=== PATIENT | male | born 1990 | race Caucasian/White ===

== ENCOUNTER 2021-06-01 16:10 | Emergency (ER) | payer OTHER, SELFPAY ==
--- NOTE | ~2021-06-01 | XR_ITS ---
. EXAMINATION: XR ankle RT min 3V, XR foot RT min 3V DATE: 06/01/2021 17:37 INDICATION: Medial and posterior right foot and ankle pain TECHNIQUE: 1. Anteroposterior, mortise, additional oblique and lateral view of the right ankle were obtained. 2. Dorsoplantar, two oblique and lateral views of the right foot were obtained. COMPARISON: None. FINDINGS: Alignment of the right foot and ankle is normal. No fracture or osteochondral lesion. Joint spaces ar e well maintained. Tiny Achilles calcaneal spur. No ankle joint effusion. The soft tissues are unrema rkable. IMPRESSION: 1. Tiny Achilles calcaneal spur. Otherwise normal right foot and ankle radiographs. Reviewed, dictated and finalized at location A. IMPRESSION: 1. Tiny Achilles calcaneal spur. Otherwise normal right foot and ankle radiogra phs.
[2021-06-01 16:50] VITALS: BP 144/90; PULSE 91; RESP 18; TEMP 36.3; O2SAT 96
--- NOTE | 2021-06-01 18:10 | ED.LOWEXIN ---
HPI - Extremity Injury (Lower) General Chief Complaint: Extremity Injury, Lower Stated Complaint: right ankle pain Time Seen by Provider: 06/01/21 16:12 Source: patient and RN notes reviewed Mode of arrival: ambulatory Limitations: no limitations History of Present Illness complaint: ankle injury Injury: Right: ankle Type of Injury: hyperextension Place: work Severity: mild Severity scale (1-10): 4 Relieving factors: nothing Exacerbating factors: weight bearing Other symptoms: none Related Data Allergies Allergy/AdvReac Type Severity Reaction Status Date / Time No Known Allergies Allergy Verified 06/01/21 16:58 Review of Systems Review of Systems: All systems reviewed & are unremarkable except as noted in HPI and below Musculoskeletal: Musculoskeletal: Reports arthralgias PMFSH Past Medical History Medical History Ankle sprain and strain Exam Const: General: no acute distress and alert Nutritional Appearance: well nourished Orientation/consciousness: patient oriented x3 Limitations: no limitations HENMT: Head: normal to inspection Ears: external ears normal, TM's normal bilaterally and EAC's normal General nose exam: Normal external nose present and Normal nares present Face and sinus: normal facial exam and sinuses nontender Mouth: Yes lip normal and Yes moist mucous membranes Teeth and gingiva: dentition normal Eyes: General: appearance normal, both eyes and all related structures Visual Jeronimo: normal visual jeronimo by confrontation Conjunctivae: conjunctivae normal Pupils: Equal, round and reactive pupils present EOM: EOMs intact bilaterally Neck: Neck: normal visual inspection and no lymphadenopathy Chest: Chest palpation & inspection: normal inspection of the chest Resp: Effort & Inspection: normal respiratory effort Auscultation: clear to auscultation bilaterally Cardio: Rate: regular rate Rhythm: regular rhythm GI: GI Palp: Yes Soft to palpation and No Tenderness to palpation present (GI) : General: Yes bladder normal to palpation and Yes no CVA tenderness Male General Exam: Yes normal external exam Testes: Testes normal Back/Spine/Pelvis: Back: no CVA tenderness Skin: General skin exam: normal color Rashes: no rashes Neuro: General: patient oriented x3, moves all extremities, no meningeal signs, no focal motor deficits and CN's II-XI intact bilaterally Extrem: General: normal to inspection and no pedal edema Psych: Appearance: grossly normal and well kempt Mental Status: mental status grossly normal Affect: normal affect Attitude: cooperative Thought content: Yes Normal thought content present Course Course Emergency Course: Pt was stable and less pain-ful in the ED. Reevaluation(s) Reevaluation #1: VSS Date: 06/01/21 Time: 17:06 Vital Signs Vital signs: Vital Signs Temperature 36.3 C L 06/01/21 16:50 Pulse Rate 91 06/01/21 16:50 Respiratory Rate 18 06/01/21 16:50 Blood Pressure 144/90 H 06/01/21 16:50 Pulse Oximetry 96 06/01/21 16:50 Temperature 36.8 C 06/01/21 18:28 Pulse Rate 65 06/01/21 18:28 Respiratory Rate 16 06/01/21 18:28 Blood Pressure 132/74 06/01/21 18:28 Pulse Oximetry 98 06/01/21 18:28 MDM - Extremity Injury (Lower) Differential Diagnosis Differential diagnosis: Likely ankle sprain and strain and ankle fracture Medical Records Attestation: I reviewed the patient's medical records. Imaging Data Radiologist's impression: Please see report. Critical Care Time Critical Care Time Critical Care Time: No Total Critical Care Time: 0 Discharge Plan Discharge Clinical Impression: Ankle sprain and strain Patient Disposition: Home, Self-Care Condition: Stable Instructions: Antibiotic Form, Ankle Sprain (ED) Additional Instructions: Home. May RTC prn. PMD in 1-2 days. NWB on crutches. Rx below. RICE. Off work x 2 days. Prescriptions:
[2021-06-01] MEDS: IBUPROFEN 400 MG TABLET 800 MG PO (18:24)
[2021-06-01 18:28] VITALS: BP 132/74; PULSE 65; RESP 16; TEMP 36.8; O2SAT 98
== END 2021-06-01 18:45 | disposition home or self-care (01) ==
PROVIDERS: Emergency Provider Emergency Medicine
DX: S93.401A Sprain of unspecified ligament of right ankle, initial encounter (principal)
CPT/HCPCS: 73610; 73630; 99283; A9270

== ENCOUNTER 2024-03-07 11:00 | Outpatient (CLI) | payer BC, SELFPAY ==
--- NOTE | ~2024-03-07 | XR_ITS ---
Right foot Technique: AP, oblique, and lateral views were obtained. Clinical History: Pain Findings: No acute fracture or dislocation is seen. Osseous alignment is anatomic. Joint spaces are p reserved without erosive or degenerative change. Soft tissues are unremarkable. Impression: Unremarkable right foot radiographs. Reviewed, dictated and finalized at location . 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
--- NOTE | ~2024-03-07 | XR_ITS ---
Right ankle Technique: AP, oblique, and lateral views were obtained. Clinical History: Pain Findings: No acute fracture or dislocation is seen. Osseous alignment is anatomic. Ankle mortise and other visualized joint spaces are preserved. Soft tissues are otherwise unremarkable. Impression: Unremarkable right ankle. Reviewed, dictated and finalized at location . 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
[2024-03-07 11:17] LABS: Basophils Absolute Auto 0.05 K/mm3 (0.00-0.10); Basophils Percent Auto 0.5 % (0.0-1.0); Eosinophils Absolute Auto 0.39 K/mm3 (0.02-0.50); Eosinophils Percent Auto 3.6 % (1.0-6.0); Hematocrit 44.7 % (40.0-54.0); Hemoglobin 15.9 g/dL (14.0-18.0); Immature Granulocyte Absolute 0.05 K/mm3 (0.00-0.00); Immature Granulocyte Percent A 0.5 % (0.0-0.0); Lymphocytes Absolute Auto 2.74 K/mm3 (1.10-4.50); Lymphocytes Percent Auto 25.3 % (18.0-42.0); Mean Corpuscular HGB Conc 35.6 g/dL (32-36); Mean Corpuscular Hemoglobin 32.4 pg (27.0-31.0); Mean Corpuscular Volume 91.2 fL (78.0-102.0); Monocytes Absolute Auto 0.92 K/mm3 (0.10-0.90); Monocytes Percent Auto 8.5 % (2.0-11.0); Neutrophils Percent Auto 61.6 % (50.0-70.0); Platelet Count Result 310 K/mm3 (150-420); Red Cell Distribution Width 12.5 % (11.6-14.4); White Blood Count 10.9 K/mm3 (4.8-10.8)
[2024-03-07 11:30] LABS: Hemoglobin A1C 4.9 % (<5.7)
[2024-03-07 11:49] LABS: Alanine Aminotransferase 34 U/L (16-63); Albumin Level 3.8 g/dL (3.4-5.0); Alkaline Phosphatase 55 U/L (46-116); Anion Gap 7 mmol/L (4-12); Aspartate Amino Transferase 11 U/L (15-37); Bilirubin,Total 0.8 mg/dL (0.00-1.00); Blood Urea Nitrogen 11 mg/dL (7-18); Calcium 9.2 mg/dL (8.5-10.1); Carbon Dioxide 29 mmol/L (21-32); Chloride 103 mmol/L (98-108); Cholesterol 190 mg/dL (0-200); Estimated Glomerular Filt Rate > 60; Glucose 96 mg/dL (70-99); HDL Direct 32 mg/dL (40-60); LDL Cholesterol Calculated 127 mg/dL (<130); Osmolality Calculated 287 mOsm/kg (285-295); Potassium 4.2 mmol/L (3.5-5.1); Sodium 139 mmol/L (136-145); Total Protein 7.2 g/dL (6.4-8.2); Triglycerides 156 mg/dL (0-150); Uric Acid 7.1 mg/dL (3.5-7.2)
[2024-03-07 12:11] LABS: Thyroid Stimulating Hormone Reflex 2.58 u/IU/mL (0.36-3.74)
== END 2024-03-07 11:01 | disposition home or self-care (01) ==
PROVIDERS: PCP Nurse Practitioner Family; Visit Provider Nurse Practitioner Family
DX: Z00.00 Encounter for general adult medical examination without abnormal findings (principal); M79.671 Pain in right foot
CPT/HCPCS: 36415; 73610; 73630; 80053; 80061; 83036; 84443; 84550; 85025